=== PATIENT | male | born 1970 | race Caucasian/White ===

== ENCOUNTER 2021-12-16 16:09 | Inpatient (IN) | payer OTHER ==
[~2021-12-16] VITALS: Ht 172.7 cm; Wt 136.1 kg
--- NOTE | ~2021-12-16 | EMS ---
[place] [address] EMS Patient Care Report Name: FABIO CARDENAS Room #: PRE M.R.#: [id number] Admission: Attend Phys: Discharge: Date of : 66 Report #: [id number] THIS REPORT FOR: //name// Report Transmitted: 12/16/2021 16:14 EMS Care Summary [place], [place]/[facility] Incident [id number] @ 12/16/2021 15:28 Incident Location [facility] [place] [address] Patient FABIO CARDENAS Male, 51 Years 1970 Patient Address [address] [place] [address] Patient History Diabetes,Stroke/CVA, Patient Medications Insulin, Chief Complaint alt loc Disposition Transported No Lights/[place] Dispatch Reason Unconscious/Fainting Transported To [facility] Narrative ems met p41 on scene. sales development associate reported pt has had an decreased loc x5 days and is normally a&ox4 gcs 15. 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 sales development associate requested for pt to be transported to [facility]. sle is on high volume and sales development associate then requested for [facility] as an alternate. pt found in wheelchair and alert. pt alert to verbal stimuli but has his eyes closed gcs 13. p41 elected to not use ralph lift and pulled pt from chair onto ems cot. pt [address] [place] [address] EMS Patient Care Report Name: FABIO CARDENAS Room #: [facility] M.R.#: [id number] Admission: Attend Phys: Discharge: Date of : 66 Report #: [id number] was transferred onto ems cot and was secured in a semi fowlers position without incident. pt was loaded into ambulance. ra spo2 88%. pt was administered 2lpm o2 via nc. pt was transported non emergent. transport was uneventful and pt rested on ems cot. pt care was transferred to appropriate staff and ems goes back in service. Initial Vitals @15:42P: 92,R: 20,BP: 170/102,Pain: 0/10,GCS: 13,Glucose: 81,SpO2: 88,Revised Trauma: 12, @15:59P: 88,R: 20,BP: 146/88,GCS: 13,SpO2: 96,Revised Trauma: 12, Assessments @15:39MENTAL:Confused,SKIN:No Abnormalities,HEENT:Head/Face: No Abnormalities,Eyes: No Abnormalities,Neck/Airway: No Abnormalities,LUNG SOUNDS:General: No Abnormalities,Left Upper: No Abnormalities,Right Upper: No Abnormalities,Left Lower: No Abnormalities,Right Lower: No Abnormalities,ABDOMEN:General: No Abnormalities,Left Upper: No Abnormalities,Right Upper: No Abnormalities,Left Lower: No Abnormalities,Right Lower: No Abnormalities,PELVIS//GI:No Abnormalities,EXTREMITIES:Left Arm: No Abnormalities,Right Arm: No Abnormalities,Left Leg: No Abnormalities,Right Leg: No Abnormalities,PULSE:NEURO:No Abnormalities,@15:50MENTAL:No Abnormalities,SKIN:No Abnormalities,HEENT:Head/Face: No Abnormalities,Eyes: No Abnormalities,Neck/Airway: No Abnormalities,LUNG SOUNDS:General: No Abnormalities,Left Upper: No Abnormalities,Right Upper: No Abnormalities,Left Lower: No Abnormalities,Right Lower: No Abnormalities,ABDOMEN:General: No Abnormalities,Left Upper: No Abnormalities,Right Upper: No Abnormalities,Left Lower: No Abnormalities,Right Lower: No Abnormalities,PELVIS//GI:No Abnormalities,EXTREMITIES:Left Arm: No Abnormalities,Right Arm: No Abnormalities,Left Leg: No Abnormalities,Right Leg: No Abnormalities,PULSE:NEURO:No Abnormalities, Impression Altered Mental Status Procedures @15:39 ALS Assessment Response: UnchangedSucceeded @15:44 Oxygen FlowRate: 2 Device: Nasal Cannula (NC) Response: ImprovedSucceeded Timeline 15:26,Call Received 15:26,Dispatch Notified 15:28,Dispatched 15:30,En Route 15:38,[place] [address] EMS Patient Care Report Name: PAIGEBETTIEFABIO Room #: [facility] M.R.#: [id number] Admission: Attend Phys: Discharge: Date of : 66 Report #: [id number] 15:39,At Patient 15:39,ALS Assessment,Response: UnchangedSucceeded, 15:42,BP: 170/102 M,PULSE: 92,RR: 20 R,SPO2: 88 Ox,ETCO2: ,B,PAIN: 0,GCS: 13, 15:44,Oxygen FlowRate: 2 Device: Nasal Cannula (NC) Response: ImprovedSucceeded, 15:49,Depart Scene 15:59,BP: 146/88 M,PULSE: 88,RR: 20 R,SPO2: 96 Ox,ETCO2: ,BG: ,PAIN: ,GCS: 13, 16:02,At Destination 16:38,Call Closed Disclaimer v1.1 Copyright 2021 [employer] This EMS Care Summary contains data elements from the applicable legal record (which may be displayed differently). It is designed to provide pertinent information for the following purposes: continuity of care, clinical quality, and state data reporting. The complete legal record is available to ED staff and administrators of the receiving hospital in [employer]'s Patient Tracker. All data is provided "as is."
--- NOTE | ~2021-12-16 | EMS ---
[facility] [address] [place] [address] EMS Patient Care Report Name: FABIO CARDENAS Room #: 438-P ADM IN M.R.#: [id number] Admission: 12/16/21 Attend Phys: Jesus Hanks MD Discharge: Date of : 66 Report #: [id number] THIS REPORT FOR: //name// Report Transmitted: 12/18/2021 11:32 EMS Care Summary [place], [place] Incident [id number] @ 12/16/2021 15:28 Incident Location [address] [place] [address] Patient FABIO CARDENAS Male, 51 Years 1970 Patient Address [address] [place] [address] Patient History Diabetes,Stroke/CVA, Patient Medications Insulin, Chief Complaint alt loc Disposition Transported No Lights/[place] Dispatch Reason Unconscious/Fainting Transported To [facility] Narrative ems met p41 on scene. valet runner reported pt has had an decreased loc x5 days and is normally a&ox4 gcs 15. 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 valet runner requested for pt to be transported to [facility]. sle is on high volume and valet runner then requested for [facility] as an alternate. pt found in wheelchair and alert. pt alert to verbal stimuli but has his eyes closed gcs 13. p41 elected to not use ralph lift and pulled pt from chair onto ems cot. pt [facility] [address] [place] [address] EMS Patient Care Report Name: FABIO CARDENAS Room #: 438-P ADM IN M.R.#: [id number] Admission: 12/16/21 Attend Phys: Jesus Hanks MD Discharge: Date of : 66 Report #: [id number] was transferred onto ems cot and was secured in a semi fowlers position without incident. pt was loaded into ambulance. ra spo2 88%. pt was administered 2lpm o2 via nc. pt was transported non emergent. transport was uneventful and pt rested on ems cot. pt care was transferred to appropriate staff and ems goes back in service. Initial Vitals @15:42P: 92,R: 20,BP: 170/102,Pain: 0/10,GCS: 13,Glucose: 81,SpO2: 88,Revised Trauma: 12, @15:59P: 88,R: 20,BP: 146/88,GCS: 13,SpO2: 96,Revised Trauma: 12, Assessments @15:39MENTAL:Confused,SKIN:No Abnormalities,HEENT:Head/Face: No Abnormalities,Eyes: No Abnormalities,Neck/Airway: No Abnormalities,LUNG SOUNDS:General: No Abnormalities,Left Upper: No Abnormalities,Right Upper: No Abnormalities,Left Lower: No Abnormalities,Right Lower: No Abnormalities,ABDOMEN:General: No Abnormalities,Left Upper: No Abnormalities,Right Upper: No Abnormalities,Left Lower: No Abnormalities,Right Lower: No Abnormalities,PELVIS//GI:No Abnormalities,EXTREMITIES:Left Arm: No Abnormalities,Right Arm: No Abnormalities,Left Leg: No Abnormalities,Right Leg: No Abnormalities,PULSE:NEURO:No Abnormalities,@15:50MENTAL:No Abnormalities,SKIN:No Abnormalities,HEENT:Head/Face: No Abnormalities,Eyes: No Abnormalities,Neck/Airway: No Abnormalities,LUNG SOUNDS:General: No Abnormalities,Left Upper: No Abnormalities,Right Upper: No Abnormalities,Left Lower: No Abnormalities,Right Lower: No Abnormalities,ABDOMEN:General: No Abnormalities,Left Upper: No Abnormalities,Right Upper: No Abnormalities,Left Lower: No Abnormalities,Right Lower: No Abnormalities,PELVIS//GI:No Abnormalities,EXTREMITIES:Left Arm: No Abnormalities,Right Arm: No Abnormalities,Left Leg: No Abnormalities,Right Leg: No Abnormalities,PULSE:NEURO:No Abnormalities, Impression Altered Mental Status Procedures @15:39 ALS Assessment Response: UnchangedSucceeded @15:44 Oxygen FlowRate: 2 Device: Nasal Cannula (NC) Response: ImprovedSucceeded Timeline 15:26,Call Received 15:26,Dispatch Notified 15:28,Dispatched 15:30,En Route 15:38,On Scene [address] [address] EMS Patient Care Report Name: FABIO CARDENAS Room #: 438-P ADM IN M.R.#: [id number] Admission: 12/16/21 Attend Phys: Jesus Hanks MD Discharge: Date of : 66 Report #: [id number] 15:39,At Patient 15:39,ALS Assessment,Response: UnchangedSucceeded, 15:42,BP: 170/102 M,PULSE: 92,RR: 20 R,SPO2: 88 Ox,ETCO2: ,B,PAIN: 0,GCS: 13, 15:44,Oxygen FlowRate: 2 Device: Nasal Cannula (NC) Response: ImprovedSucceeded, 15:49,Depart Scene 15:59,BP: 146/88 M,PULSE: 88,RR: 20 R,SPO2: 96 Ox,ETCO2: ,BG: ,PAIN: ,GCS: 13, 16:02,At Destination 16:38,Call Closed Disclaimer v1.1 Copyright 2021 [employer] This EMS Care Summary contains data elements from the applicable legal record (which may be displayed differently). It is designed to provide pertinent information for the following purposes: continuity of care, clinical quality, and state data reporting. The complete legal record is available to ED staff and administrators of the receiving hospital in [employer]'s Patient Tracker. All data is provided "as is."
[~2021-12-16 16:09] MED LIST: ASA81BEC PO; BENZTROPINE MESY2 MG PO; CALCITONIN-SAL3.7 ML NASAL; COZAAR 25 MG TA25 M2 PO; HALOPERIDOL 5 MG5 MG PO; IRON325 M1 PO; JARDIANCE10 MG PO
[2021-12-16 16:48] VITALS: BP 164/103
[2021-12-16 17:11] LABS: URINE BILIRUBIN NEGATIVE (Negative); URINE BLOOD 1+ (Negative); URINE CLARITY CLOUDY; URINE COLOR YELLOW; URINE GLUCOSE-RANDOM* 3+ (Negative); URINE KETONES TRACE (Negative); URINE LEUKOCYTES-REFLEX 1+ (Negative); URINE NITRITE-REFLEX NEGATIVE (Negative); URINE PROTEIN (DIPSTICK) NEGATIVE (Negative)
[2021-12-16 17:11] LABS: ABSOLUTE NEUTROPHILS 4.6 thou/uL (1.4-8.2); BASOPHILS 0.6 % (0.0-2.0); EOSINOPHILS 1.8 % (0.0-3.0); HEMATOCRIT 40.6 % (42.0-52.0); HEMOGLOBIN 12.8 gm/dL (14.0-18.0); LYMPHOCYTES 21.3 % (24.0-44.0); MCH 28.7 pg (26.0-34.0); MCHC 31.6 g/dL (28.0-37.0); MCV 90.8 fL (80.0-100.0); MONOCYTES 14.7 % (1.0-8.0); PLATELET COUNT 253 thou/uL (150-400); POLYS 61.6 % (36.0-66.0); RBC 4.47 mil/uL (4.50-6.00); RDW 15.7 % (10.5-14.5); WBC 7.5 thou/uL (4.0-11.0)
[2021-12-16 17:17] LABS: CALCIUM 9.5 mg/dL (8.5-10.1); CREATININE 0.4 mg/dL (0.7-1.3)
[2021-12-16 17:21] LABS: CASTS None Seen /LPF (None Seen); SQUAMOUS 0-3 Few /LPF (0-3); URINE WBC-REFLEX >25 Many /HPF (0-5)
[2021-12-16 17:22] LABS: BACTERIA-REFLEX >30 Many /HPF (None Seen); CRYSTALS None Seen /LPF (None Seen); URINE RBC 3-10 Few /HPF (NONE SEEN)
[2021-12-16 17:26] LABS: POTASSIUM 2.2 mmol/L (3.5-5.1)
[2021-12-16 18:25] VITALS: BP 153/95
[2021-12-16 18:32] VITALS: BP 160/95
[2021-12-16 19:23] LABS: BE(vivo) 9.5 mmol/L (-2 to +3); HCO3 35.9 mmol/L (22.0-26.0); PO2 63.9 mmHg (80.0-100.0); pH 7.441 (7.360-7.450); sO2 92.8 % (92.0-98.0)
[2021-12-16 19:28] LABS: AMP/METHAMP Negative (Negative); BARBITURATES Negative (Negative); BENZODIAZEPINES Negative (Negative); COCAINE Negative (Negative); METHADONE Negative (Negative); OPIATES Negative (Negative); PCP Negative (Negative)
[2021-12-16 20:00] VITALS: BP 152/89
--- NOTE | 2021-12-16 21:15 | NUR ---
REPRINT SORTER ([place])-[phone]
[2021-12-16 22:10] VITALS: BP 156/92
[2021-12-16] MEDS ORDERED: FLEXERIL PO (22:36)
[2021-12-16] MEDS ORDERED: CLONAZEPAM 0.50.5 M1 PO (22:36)
[2021-12-16] MEDS ORDERED: AVODART0.5 MG PO (22:37)
[2021-12-16] MEDS ORDERED: JARDIANCE10 MG PO (22:38)
[2021-12-16] MEDS ORDERED: MONTELUKAST SODI4 M1 PO (22:38)
[2021-12-16] MEDS ORDERED: OMEPRAZOLE40 MG PO (22:39)
[2021-12-16] MEDS ORDERED: SEROQUEL 100 M100 M1 PO (22:40)
[2021-12-16] MEDS ORDERED: SIMVASTATIN40 MG PO (22:40)
[2021-12-16] MEDS ORDERED: SODIUM CHLORIDE1 G2 PO (22:41)
[2021-12-16] MEDS ORDERED: TAMSULOSIN HCL0.4 MG PO (22:42)
[2021-12-16] MEDS ORDERED: TRAMADOL 50 MG50 MG PO (22:43)
[2021-12-16] MEDS ORDERED: TRELEGY ELLIPT1 EACH (22:44)
[2021-12-16] MEDS ORDERED: VITAMIN D21250 MCG PO (22:45)
[2021-12-16] MEDS ORDERED: WELLBUTRIN 75 M75 M1 PO (22:46)
[2021-12-16] MEDS ORDERED: DEPAKOTE ER500 M1 PO (22:47)
[2021-12-16] MEDS ORDERED: METFORMIN HCL500 M3 PO (22:48)
[2021-12-16] MEDS ORDERED: MUCINEX600 MG PO (22:49)
[2021-12-16] MEDS ORDERED: NEURONTIN100 MG PO (22:49)
[2021-12-16] MEDS ORDERED: SEROQUEL 25 MG25 MG PO (22:50)
--- NOTE | 2021-12-17 06:00 | NUR ---
ASSUMED CARE OF PT AT 1900. PT ASSESSED TO BE AOX2 51M PRESENTING WITH UTI AND AMS. PT ADMITTED TO ROOM AND MADE COMFORTABLE. ALL ADMIT CHECKLIST COMPLETED. CLEANED UP PT IN BED. PT IS STABLE ON 3L (BASELINE) AND 8L WITH CPAP AT NIGHT, FLUIDS WITH POTASSIUM INFUSING, ORAL POTASSIUM GIVEN FOR REPLACEMENT, BS STABLE, HOME MEDS INPUT TO MED REC, AND IS ABLE TO TAKE MEDICINE CRUSHED IN APPLESAUCE. CALLED MD ABOUT CHANGING JUSTICE IT IS PURULENT. UPON ASSESSMENT PT HAS SOME TRAUMA TO PENIS AND URETHRA INCLUDING SOME SCAR TISSUE. UPON DISCUSSION WITH INDUSTRIAL PSYCHOLOGY TEACHER, WILL AWAIT ID (AND POSSIBLE URO CONSULT) IN AM BEFORE REMOVING JUSTICE. STILL DRAINING WELL. WILL CONT TO MONITOR AND UPDATE DAY SHIFT RN.
[2021-12-17 06:01] LABS: BASOPHILS 0.2 % (0.0-2.0); EOSINOPHILS 0.1 % (0.0-3.0); HEMATOCRIT 37.9 % (42.0-52.0); HEMOGLOBIN 12.5 gm/dL (14.0-18.0); LYMPHOCYTES 18.7 % (24.0-44.0); MCH 29.4 pg (26.0-34.0); MCV 89.1 fL (80.0-100.0); MONOCYTES 11.2 % (1.0-8.0); PLATELET COUNT 240 thou/uL (150-400); POLYS 69.8 % (36.0-66.0); RBC 4.25 mil/uL (4.50-6.00); RDW 15.4 % (10.5-14.5); WBC 4.3 thou/uL (4.0-11.0)
[2021-12-17 06:30] LABS: CALCIUM 9.4 mg/dL (8.5-10.1); CREATININE 0.3 mg/dL (0.7-1.3); MAGNESIUM 1.6 mg/dL (1.8-2.4)
[2021-12-17 06:34] LABS: POTASSIUM 2.7 mmol/L (3.5-5.1)
--- NOTE | 2021-12-17 09:22 | NUR ---
WOUND CONSULT: RISK ASSESSMENT: THE PATIENT IS 300LB. HIS GIRTH/WEIGHT IS APPROPRATE FOR THIS BED. THERE ARE NO WOUNDS. THE PATIENT HAS AN APPITITE AND IS EATING. THE PATIENT HAS A JUSTICE. RECOMMENDATIONS: -ADD A LOW AIRLOSS BED PUMP: MAKE SURE THE PUMP IS ON THE ISOFLEX SETTING AT ALL TIMES. -NO NEED TO FOLLOW THIS PATIENT.
[2021-12-17] MEDS ORDERED: DIVALPROEX SOD500 MG PO (12:10)
--- NOTE | 2021-12-17 14:07 | 2DMMODE ---
[facility] [place] [address] 2 D/M-MODE ECHOCARDIOGRAM Name: FABIO CARDENAS Room #: 438-P ADM IN M.R.#: [id number] Admission: 12/16/21 Attend Phys: Jesus Hanks MD Discharge: Date of : 66 Report #: [id number] THIS REPORT FOR: cc: Tia Osorio MD, Rita MD Lammoglia, Francisco J. MD ~ APPROVED REPORT Study performed: 12/17/2021 13:22:42 EXAM: Comprehensive 2D, Doppler, and color-flow Echocardiogram Patient Location: Bedside Room #: 438 Status: routine BSA: 2.43 HR: 84 bpm BP: 156/92 mmHg Rhythm: NSR Other Information Study Quality: Fair Technically limited study due to lung disease, morbid obesity. Indications Dyspnea, hypoxia, COPD. Hx: paraplegia, mental retardation, HTN, HLP, DM, obesity. Echo Enhancing Agent Indication: Endocardial border delineation Agent(s) / Amount(s) Used: Optison 4 cc 2D Dimensions RVDd: 40.08 mm IVSd: 9.70 (7-11mm) LVOT Diam: 23.29 (18-24mm) LVDd: 51.82 mm PWd: 10.39 (7-11mm) Ascending Ao: 37.70 (22-36mm) LVDs: 38.52 (25-40mm) Left Atrium: 30.67 (27-40mm) Aortic Root: 42.02 mm Volumes Left Atrial Volume (Systole) Single Plane 4CH: 26.60 mL Single Plane 2CH: 29.65 mL [facility] [address] [place] [address] 2 D/M-MODE ECHOCARDIOGRAM Name: PAIGEFABIO ALEXANDRE Room #: 438-P [facility] IN ..#: [id number] Admission: 12/16/21 Attend Phys: Jesus Hanks MD Discharge: Date of : 66 Report #: [id number] ESV Index: 13.00 mL/m2 Aortic Valve AoV Peak Perico.: 1.21 m/s AO Peak Gr.: 5.90 mmHg LVOT Max P.83 mmHg LVOT Max V: 1.21 m/s FADY Vmax: 4.23 cm2 Mitral Valve E/A Ratio: 1.2 MV Decel. Time: 209.67 ms MV E Max Perico.: 0.69 m/s MV A Perico.: 0.57 m/s MV PHT: 60.80 ms IVRT: 65.74 ms Pulmonary Valve PV Peak Perico.: 1.07 m/s PV Peak Gr.: 4.56 mmHg Pulmonary Vein P Vein S: 0.55 m/s P Vein A: 0.30 m/s P Vein D: 0.42 m/s P Vein S/D Ratio: 1.31 Left Ventricle The left ventricle is normal size. There is normal LV segmental wall motion. There is normal left ventricular wall thickness. Left ventricular systolic function is normal. LVEF is 60%. Moderate diastolic dysfunction is present (pseudonormal filling). Right Ventricle The right ventricle is normal size. The right ventricular systolic function is normal. Atria The left atrium size is normal. The right atrium size is normal. Aortic Valve The Aortic valve is sclerotic. No aortic regurgitation is present. There is no aortic valvular stenosis. Mitral Valve The mitral valve is normal in structure. There is no mitral valve regurgitation noted. No evidence of mitral valve stenosis. [facility] [address] [place] [address] 2 D/M-MODE ECHOCARDIOGRAM Name: FABIO CARDENAS Room #: 438-P ADM IN .R.#: [id number] Admission: 12/16/21 Attend Phys: Jesus Hanks MD Discharge: Date of : 66 Report #: [id number] Tricuspid Valve The tricuspid valve is normal in structure. There is no tricuspid valve regurgitation noted. Unable to assess PA pressure. Pulmonic Valve The pulmonary valve is normal in structure. There is no pulmonic valvular regurgitation. Great Vessels Aortic root is dilated (4.2cm). The ascending aorta is at the upper limits of normal. IVC is poorlyl visualized. Pericardium There is no pericardial effusion. <Conclusion> The left ventricle is normal size. There is normal left ventricular wall thickness. LVEF is 60%. The right ventricle is normal size. The left atrium size is normal. The Aortic valve is sclerotic. The mitral valve is normal in structure. The tricuspid valve is normal in structure. The pulmonary valve is normal in structure. Aortic root is dilated (4.2cm). The ascending aorta is at the upper limits of normal. There is no pericardial effusion. <ELECTRONICALLY SIGNED> By: Bernardo Simmons MD 12/17/21 1406 1406 1406 Bernardo Simmons MD /INF
[2021-12-17 14:23] VITALS: BP 156/92
--- NOTE | 2021-12-17 14:24 | NUR ---
Case opened to follow for dc planning. Pt admitted with complicated UTI and pneumonitis. Covid NOW was negative and Covid PCR is pending. Pt admits from a [facility]ci ([facility]) called [facility]. He lives with 3 other residents and has 24hr care/superivison.He has a hx of parapelegia from 6months ago and long hx of schizophrenia and mild mental retardation as well asthma/copd. He is a two pack a day smoker and uses noc O2 at 2lnc. He transfer up to a w/c via ralph lift and staff push him around the home. He is able to feed himself and use his cell phone but needs assist with dressing, bathing, grooming and medication mngt. He has a hood cath in place and uses [facility] HH services with regular RN visits. His cath was last changed on 11/26/21 and has is noted to have been battling a UTI for the past month. The pt has had 2 covid vaccines and a booster 9 days ago. His cg reports he is a&ox3 and able to make his own decisions. [facility] reports their cm/director/care team assists him with decision making as he does not have a legal guardian or DPOA or health care directive. His closest next of kin is his step mother who lives in [place]. [facility] calls her regular updates and notes that they have updated her on his hospitalization. They deny any known covid exposures. The pt's caregiver Martina, his case mngr and the director can all be reached by all the main number at [facility] [phone]. They would like to have his HH services resumed at [place]. They have his w/c at the house but his ralph lift pad is here in his room (confirmed with the unit RN). They can provide transport at [place] and will need a chart copy and med orders. ID and urology have been consulted. The pt is getting iv atb, st eval, and on 4liters of o2. Care team updated. [facility] notified of his admission. They will need orders to resume at [place]. Cm assessment completed via phone with the staff at [facility] as pt is confused at this time. Will follow.
--- NOTE | 2021-12-17 14:44 | NUR ---
Assess due to RD consult received. Pt with class III obesity, BMI 45.6 admitted from skilled nursing with altered mental status, UTI. Hx diabetes, schiophrenia, paraplegia. Wound care indicates no wounds. ST has assessed and placed on modified diet with nectar liquids and pt will require feed assist. Will follow intake trends, otherwise low nutrition risk with appropriate nutrition interventions in place
[2021-12-17 16:33] VITALS: BP 123/76
--- NOTE | 2021-12-17 18:45 | NUR ---
Patient axox1, had a hood last change was Oct,. Home health nurse at [facility] home change hood each month on the . patient had two mucosy bowel movement today. eating fair, bestrest due to paralyze from waist down. call light within reach, will continous monitoring.
--- NOTE | 2021-12-17 19:19 | NUR ---
Patient had critical K of 2.8 at 1634, page the doctor at 1635. then page the hospitalist two more time, pending response.
[2021-12-17 20:01] VITALS: BP 150/93
--- NOTE | 2021-12-18 02:41 | NUR ---
PT IS A/O X1-2 WITH HALLUCINATIONS. CURRENTLY ON BEDREST. WEARS CPAP AT [facility]. DENIES C/O PAIN OR DISCOMFORT. MEDICATIONS GIVEN PER MAR. PT POTASSIUM LEVEL LOW. IT INTEGRATION ARCHITECT NOTIFIED. ORDERS GIVEN AND CARRIED OUT. FALL PRECUATIONS IN PLACE, CALL LIGHT IS WITHIN REACH.
[2021-12-18 07:09] LABS: GLYCOHEMOGLOBIN (HGB A1C) 5.2 % (4.8-5.6)
--- NOTE | 2021-12-18 07:31 | HC ---
[facility] [place] [address] CONSULTATION Name: FABIO CARDENAS Room #: 438-P ADM IN M.R.#: [id number] Admission: 12/16/21 Attend Phys: Jesus Hanks MD Discharge: Date of : 66 Report #: [id number] THIS REPORT FOR: cc: Tia Osorio MD, Rita MD Barry, Joseph W. MD ~ DATE OF SERVICE: 12/17/2021 INFECTIOUS DISEASE CONSULTATION ATTENDING PHYSICIAN: Dr. Jesus Hanks. REASON FOR EVALUATION: Recurrent urinary tract infection, suspected pneumonitis as well. HISTORY OF PRESENT ILLNESS: Chart reviewed. The patient examined. This is a 51-year-old gentleman with significant disease burden, has underlying mild mental retardation, schizophrenia, also notes hypertension, diabetes mellitus, who apparently lives at home, has a wallpaper consultant who noted altered mental status over the last several days. He is unable to give me too many details of the history, although he is presenting more lucid at this point. He does admit to some mild dyspnea without cough. He is requiring supplemental oxygen at 4 liters per nasal cannula, currently, although had been up to 8. Evaluation was initiated. Chest x-ray showed diffuse bilateral interstitial and alveolar opacities, question of edema versus pneumonitis. Urinalysis did show marked pyuria and marked bacteriuria as well. Lactic acid was normal range at 0.8. Coronavirus testing was negative. Procalcitonin 0.15. Initial ABGs, pH 7.441, pCO2 of 54, pO2 of 63.9 on 3 liters. Blood cultures collected at time of admission are sterile thus far. Urine culture is pending. He is empirically started on therapy with levofloxacin, dose of ceftriaxone. ALLERGIES: None known. CURRENT MEDICINES: Include methylprednisolone, furosemide, enoxaparin, levofloxacin, ipratropium, albuterol inhaler, p.r.n. ondansetron. PAST MEDICAL HISTORY: Hypertension, asthma, underlying COPD, reflux, mental retardation, schizophrenia. SOCIAL HISTORY: He is disabled. FAMILY HISTORY: Noncontributory. REVIEW OF SYSTEMS: As noted above. He denies any significant GI related complaints. [facility] [address] [place] [address] CONSULTATION Name: FABIO CARDENAS Room #: 438-P [facility].#: [id number] Admission: 12/16/21 Attend Phys: Jesus Hanks MD Discharge: Date of : 66 Report #: [id number] PHYSICAL EXAMINATION: GENERAL: He appears chronically ill, undernourished though he is obese. He is pleasant, cooperative, encephalopathic. VITAL SIGNS: Temperature 97.2, pulse 87, respirations 18, blood pressure 156/92. SKIN: Warm. He is pale. HEENT: Normocephalic. Extraocular muscles intact. NECK: Supple. LUNGS: Diminished breath sounds. There are some wheezes. Few scattered coarse breath sounds, primarily at the bases. HEART: Regular. I do not appreciate a murmur. ABDOMEN: Obese, firm, nontender. GENITOURINARY AND RECTAL: Deferred. LABORATORY DATA: Electrolytes: Sodium 145, potassium 2.7, chloride 103, bicarbonate is 35, anion gap of 7, BUN and creatinine 7 and 0.3, glucose of 123. CBC: White count 4.3, H and H 12.5 and 37.9, platelets of 240. Drug screen was negative. Sed rate of 58. ASSESSMENT AND PLAN: Complicated urinary tract infection, complicated by encephalopathy. Secondly, he appears to have pneumonitis versus edema, seems to have improved over the course of last few hours. We will continue Levaquin. We will check an echo to evaluate. No evidence of vasculopathy to this point nor does have history of hypertension apparently. Check troponin, CPK. At this point, he remains quite tenuous. We will continue to monitor expectantly. <ELECTRONICALLY SIGNED> By: Young Snider MD 12/18/21 0731 1049 [id number] Young Snider MD /nt
[2021-12-18 08:01] VITALS: BP 167/105
[2021-12-18 08:39] LABS: CALCIUM 9.8 mg/dL (8.5-10.1); CREATININE 0.4 mg/dL (0.7-1.3)
[2021-12-18 08:49] LABS: POTASSIUM 2.9 mmol/L (3.5-5.1)
--- NOTE | 2021-12-18 10:45 | NUR ---
ASSUMED PT CARE AT 0700 THIS MORNING. PT IS A/OX4 AND PARALYZED FROM WAIST DOWN. ASSESSMENTS NOTED IN CHART AND OTEHRWISE UNREMARKABLE. FALL PRECAUTIONS ARE IN PLACE. CALL LIGHT AND OTHER NEEDS ARE IN REACH. MEDS AND TX GIVEN NEEDED AND SCEDULED. WILL CONTINUE TO MONITOR AND NOTE ANY CHANGES.
[2021-12-18 16:03] VITALS: BP 167/105
[2021-12-18 16:11] VITALS: BP 176/111
[2021-12-18 20:00] VITALS: BP 157/106
[2021-12-19 00:30] VITALS: BP 154/107
--- NOTE | 2021-12-19 02:28 | NUR ---
PT IS A/O X1 AND IS ON BEDREST. 4 LITERS O2 PER NC. TOOK OFF CPAP AFTER JUST A FEW HOURS OF WEARING IT. O2 LEVEL WNL. JUSTICE CATHETER IN PLACE DRAINING YELLOW URINE. INCONTINENT OF STOOL X1. DENIES C/O PAIN OR DISCOMFORT. MEDICATIONS GIVEN PER MAR. PRAFO BOOTS IN PLACE. EDEMA NOTED TO VERO OWEN. FALL PRECAUTIONS IN PLACE, CALL LIGHT IS WITHIN REACH.
[2021-12-19 05:19] LABS: CREATININE 0.3 mg/dL (0.7-1.3)
[2021-12-19 05:26] VITALS: BP 147/103
[2021-12-19 05:49] LABS: POTASSIUM 2.6 mmol/L (3.5-5.1)
[2021-12-19 08:48] VITALS: BP 145/102
[2021-12-19 12:02] VITALS: BP 156/92
--- NOTE | 2021-12-19 15:24 | NUR ---
No dc today. GI consult and replacement of low K+. [facility] HH called and updated provided. Possible dc soon. They will need new orders faxed for RN/PT/OT.
--- NOTE | 2021-12-19 16:06 | NUR ---
DISCONTINUED L AC PERIPHERAL IV - NEW IV PUT IN ON RIGHT FOREARM
--- NOTE | 2021-12-19 17:01 | NUR ---
ADMINISTERED SUPPOSITORY - PT HAD TWO LIQUIDY STOOLS THROUGHOUT THE DAY.
[2021-12-19 20:19] VITALS: BP 110/72
--- NOTE | 2021-12-20 06:12 | NUR ---
NO ACUTE EVENTS THIS SHIFT. PT HAS MULTIPLE LARGE LIQUID BMs OVERNIGHT- REPORTS FEELING BETTER THIS MORNING. CPAP WORN OVERNIGHT- MEDS GIVEN PER EMAR. PT DENIES PAIN, REPOSITIONED WILLING
[2021-12-20 07:24] VITALS: BP 108/67
[2021-12-20 07:38] LABS: CALCIUM 9.1 mg/dL (8.5-10.1); CREATININE 0.7 mg/dL (0.7-1.3)
[2021-12-20 07:48] LABS: POTASSIUM 2.9 mmol/L (3.5-5.1)
--- NOTE | 2021-12-20 08:24 | NUR ---
Lab called with crit lab of potassium 2.9. Dr velez notified. pt assymptomatic
[2021-12-20 15:28] VITALS: BP 116/67
--- NOTE | 2021-12-20 16:51 | NUR ---
If patient discharge over weekend Call [facility] home at [phone]. Alert of discharge and fax orders to [phone]. arrange transport via [facility] at [phone] dont forget to request oxygen. Call [facility] home health care at [phone] alert of discharge and fax orders to [phone]
[2021-12-20 20:49] VITALS: BP 133/85
--- NOTE | 2021-12-21 02:52 | NUR ---
ASSUMED CARE OF PT AT 1900,. REPORT RECIEVED. RADHA ASSESSMENT COMPLETE. MEDS GIVEN PER JAN. NO C/O PAIN AT THIS TIME. IV VANCO RUNNING PER JAN PER PHARMACY. JUSTICE CARE DONE, IN PLACE, DRAINING. PRAFO BOOTS ON BLE. REPOSITIONING Q 2 HOURS. NO INSULIN GIVEN D/T NOT BEING INDICATED AT THIS TIME. HOURLY ROUNDING CONTINUING. CALL LIGHT IN REACH
[2021-12-21 07:41] VITALS: BP 145/96
[2021-12-21] MEDS ORDERED: MIRALAX17 GM PO (09:00)
[2021-12-21] MEDS ORDERED: CEFDINIR300 MG PO (09:04)
[2021-12-21 10:25] VITALS: BP 145/96
--- NOTE | 2021-12-21 10:27 | NUR ---
ASSUMED CARE OF PT AT 0700. PT REQURED VASHTI CARE ON START OF SHIFT - HAD EXTRA LARGE LIQUIDY BM. RESTING COMFORTABLY OTHERWISE. NO COMPLAINTS OF PAIN. ALL VITAL SIGNS WNL. CURRENT SAT 98% ON 2L. ATE 50% OF BREAKFAST. DR BARAJAS PUT IN DISCHARGE ORDER FOR TODAY. WAITING ON DIRECTOR CHEMISTRY TIME.
--- NOTE | 2021-12-21 13:20 | NUR ---
PT DISCHARGING TODAY BACK TO [facility] FAXED DC ORDERS/SUMMARY RECEIVED CONFIRMATION. SPOKE WITH YAMEL FROM THE [facility] AND SHE SPOKE WITH PT'S NURSE AND AT FIRST A WC TRANSPORT WAS ORDERED SHE SAID PT USES WC AT HOME. BUT NURSE SRIDHAR CALLED AND SPOKE WITH YAMEL AND PT'S WC AT HOME HAS STRAPS TO HOLD HIM IN A UPRIGHT POSITION. SO BOTH AGREE ON STRETCHER VAN FOR TRANSPORT NOTIFIED [facility] AND THEY CAN PICK PT UP AT 1999 TONITE AND NOTIFIED YAMEL AT [facility] HOME AND SHE CAN ACCEPT PT AT THAT TIME. NOTIFIED THE UNIT SPOKE WITH SRIDHAR GOODWIN AND ALL IN AGREEMENT TO DC TODAY AT 1999.
== END 2021-12-21 18:05 | disposition home health service (06) | DRG 177 ==
LOC: ER 16:09 → EROBS 18:06 → 4S 18:06
PROVIDERS: Emergency Medicine; Nurse Practitioner; Specialist; ADMIT Hospitalist; ATTEND Hospitalist
PROC: 5A09357 Assistance with Respiratory Ventilation, Less than 24 Consecutive Hours, Continuous Positive Airway Pressure (ICD-10-PCS; principal; 2021-12-16)
PROC: 5A09357 Assistance with Respiratory Ventilation, Less than 24 Consecutive Hours, Continuous Positive Airway Pressure (ICD-10-PCS; 2021-12-18)
PROC: 5A09357 Assistance with Respiratory Ventilation, Less than 24 Consecutive Hours, Continuous Positive Airway Pressure (ICD-10-PCS; 2021-12-19)
PROC: 5A09357 Assistance with Respiratory Ventilation, Less than 24 Consecutive Hours, Continuous Positive Airway Pressure (ICD-10-PCS; 2021-12-20)
PROC: 5A09357 Assistance with Respiratory Ventilation, Less than 24 Consecutive Hours, Continuous Positive Airway Pressure (ICD-10-PCS; 2021-12-21)
DX: J15.6 Pneumonia due to other Gram-negative bacteria (principal); J96.21 Acute and chronic respiratory failure with hypoxia; N39.0 Urinary tract infection, site not specified; G93.40 Encephalopathy, unspecified; G82.20 Paraplegia, unspecified; J44.0 Chronic obstructive pulmonary disease with (acute) lower respiratory infection; E87.6 Hypokalemia; F20.9 Schizophrenia, unspecified; E11.9 Type 2 diabetes mellitus without complications; Z20.822 Contact with and (suspected) exposure to COVID-19; K21.9 Gastro-esophageal reflux disease without esophagitis; E78.5 Hyperlipidemia, unspecified; I10 Essential (primary) hypertension; R41.0 Disorientation, unspecified; J45.909 Unspecified asthma, uncomplicated; F32.9 Major depressive disorder, single episode, unspecified; K59.09 Other constipation; G25.81 Restless legs syndrome; Z79.82 Long term (current) use of aspirin; Z79.899 Other long term (current) drug therapy; Z74.01 Bed confinement status
CPT/HCPCS: 10100; 10195

== ENCOUNTER 2022-01-03 16:12 | Inpatient (IN) | payer OTHER ==
[~2022-01-03] VITALS: Ht 182.9 cm; Wt 131.5 kg
--- NOTE | ~2022-01-03 | EMS ---
[address] [address] EMS Patient Care Report Name: FABIO CARDENAS Room #: PRE M.R.#: [id number] Admission: Attend Phys: Discharge: Date of : 66 Report #: [id number] THIS REPORT FOR: //name// Report Transmitted: 01/03/2022 17:23 EMS Care Summary [place], [place]/[facility] Incident [id number] @ 01/03/2022 15:41 Incident Location [facility] [address] [place] [address] Patient FABIO CARDENAS Male, 51 Years 1970 Patient Address [address] [place] [address] Patient History Diabetes,Stroke/CVA, Patient Medications Insulin, Chief Complaint Possible altered mental status Disposition Transported No Lights/[place] Dispatch Reason Sick Person Transported To [facility] Narrative M42 arrived on scene to find the patient reclined in a wheel chair. Staff said the patient from 12:30-3:30 had an abnormal mental status. They said the patient would not talk to them and would just wave his hand at them. Patient was responding to our questions and was AOX2. According to staff he seemed more normal now but was a little off. Patient was not normally on oxygen and had been in the 70's until they had placed him on oxygen. Patient was initially on [address] [address] EMS Patient Care Report Name: FABIO CARDENAS Room #: PRE [facility]..#: [id number] Admission: Attend Phys: Discharge: Date of : 66 Report #: [id number] 4lpm at 92%. We removed the oxygen and the patient oxygen sat had dropped to 85%. We placed the patient back on oxygen and he went back up to the 90's. Patient denied chest pain, fever, cough, or shortness of breath. Patient was moved to the cot and secured with seat belts. Patient had dark colored urine in his urinary catheter bag. En route to the hospital no changes in the patient condition occurred. M42 arrived on scene of the hospital and patient care was transferred to the RN. Initial Vitals @15:55P: 82,R: 16,BP: 133/78,Pain: 0/10,GCS: 14,Glucose: 127,CO: 0,SpO2: 95,Revised Trauma: 12, @15:51P: 79,R: 16,BP: 127/68,Pain: 0/10,GCS: 14,SpO2: 98,Revised Trauma: 12, Assessments @15:48MENTAL:Confused,Event Oriented,Person Oriented,SKIN:HEENT:Head/Face: No Abnormalities,Eyes: No Abnormalities,Neck/Airway: No Abnormalities,LUNG SOUNDS:General: No Abnormalities,Left Upper: No Abnormalities,Right Upper: No Abnormalities,Left Lower: No Abnormalities,Right Lower: No Abnormalities,ABDOMEN:General: No Abnormalities,Left Upper: No Abnormalities,Right Upper: No Abnormalities,Left Lower: No Abnormalities,Right Lower: No Abnormalities,PELVIS//GI:No Abnormalities,EXTREMITIES:Left Arm: No Abnormalities,Right Arm: No Abnormalities,Left Leg: No Abnormalities,Right Leg: No Abnormalities,PULSE:NEURO:No Abnormalities,@15:59MENTAL:Confused,Event Oriented,Person Oriented,SKIN:HEENT:Head/Face: No Abnormalities,Eyes: No Abnormalities,Neck/Airway: No Abnormalities,LUNG SOUNDS:General: No Abnormalities,Left Upper: No Abnormalities,Right Upper: No Abnormalities,Left Lower: No Abnormalities,Right Lower: No Abnormalities,ABDOMEN:General: No Abnormalities,Left Upper: No Abnormalities,Right Upper: No Abnormalities,Left Lower: No Abnormalities,Right Lower: No Abnormalities,PELVIS//GI:No Abnormalities,EXTREMITIES:Left Arm: No Abnormalities,Right Arm: No Abnormalities,Left Leg: No Abnormalities,Right Leg: No Abnormalities,PULSE:NEURO:No Abnormalities, Impression Altered Mental Status Procedures @15:48 ALS Assessment Response: UnchangedSucceeded @15:56 IV Therapy - Saline Lock 10cc (20 ga) Site: Antecubital-Left Response: UnchangedSucceeded Timeline 15:40,Call Received 15:40,Dispatch Notified 15:41,Dispatched [address] [address] EMS Patient Care Report Name: FABIO CARDENAS Room #: PRE M.R.#: [id number] Admission: Attend Phys: Discharge: Date of : 66 Report #: [id number] 15:42,En Route 15:47,On Scene 15:48,At Patient 15:48,ALS Assessment,Response: UnchangedSucceeded, 15:51,BP: 127/68 M,PULSE: 79,RR: 16 R,SPO2: 98 Ox,ETCO2: ,BG: ,PAIN: 0,GCS: 14, 15:54,Depart Scene 15:55,BP: 133/78 M,PULSE: 82,RR: 16 R,SPO2: 95 Ox,ETCO2: ,B,PAIN: 0,GCS: 14, 15:56,IV Therapy - Saline Lock 10cc 20 ga Site: Antecubital-Left,Response: UnchangedSucceeded, 16:08,At Destination 16:31,Call Closed Disclaimer v1.1 Copyright 2021 [employer] This EMS Care Summary contains data elements from the applicable legal record (which may be displayed differently). It is designed to provide pertinent information for the following purposes: continuity of care, clinical quality, and state data reporting. The complete legal record is available to ED staff and administrators of the receiving hospital in [employer] Patient Tracker. All data is provided "as is."
[~2022-01-03 16:12] MED LIST changes: +AVODART0.5 MG PO; +CEFDINIR300 MG PO; +CLONAZEPAM 0.50.5 M1 PO; +DEPAKOTE ER500 M1 PO; +DIVALPROEX SOD500 MG PO; +FLEXERIL PO; +METFORMIN HCL500 M3 PO; +MIRALAX17 GM PO; +MONTELUKAST SODI4 M1 PO; +MUCINEX600 MG PO; +NEURONTIN100 MG PO; +OMEPRAZOLE40 MG PO; +SEROQUEL 100 M100 M1 PO; +SEROQUEL 25 MG25 MG PO; +SIMVASTATIN40 MG PO; +SODIUM CHLORIDE1 G2 PO; +TAMSULOSIN HCL0.4 MG PO; +TRAMADOL 50 MG50 MG PO; +TRELEGY ELLIPT1 EACH; +VITAMIN D21250 MCG PO; +WELLBUTRIN 75 M75 M1 PO
[2022-01-03 16:15] VITALS: BP 109/64
[2022-01-03 16:33] LABS: BE(vivo) 10.4 mmol/L (-2 to +3); HCO3 36.3 mmol/L (22.0-26.0); PCO2 53.4 mmHg (35.0-45.0); PO2 70.4 mmHg (80.0-100.0); sO2 94.5 % (92.0-98.0)
[2022-01-03 16:44] LABS: ABSOLUTE NEUTROPHILS 4.1 thou/uL (1.4-8.2); EOSINOPHILS 3.5 % (0.0-3.0); HEMATOCRIT 39.5 % (42.0-52.0); HEMOGLOBIN 12.9 gm/dL (14.0-18.0); LYMPHOCYTES 28.6 % (24.0-44.0); MCH 28.6 pg (26.0-34.0); MCHC 32.5 g/dL (28.0-37.0); MONOCYTES 8.3 % (1.0-8.0); PLATELET COUNT 278 thou/uL (150-400); POLYS 58.6 % (36.0-66.0); RBC 4.49 mil/uL (4.50-6.00); RDW 16.4 % (10.5-14.5)
[2022-01-03 17:07] LABS: ALBUMIN 2.4 g/dL (3.4-5.0); CREATININE 0.4 mg/dL (0.7-1.3); TOTAL BILIRUBIN 0.3 mg/dL (0.2-1.0)
[2022-01-03 17:22] LABS: POTASSIUM 2.1 mmol/L (3.5-5.1)
[2022-01-03 17:43] LABS: URINE BILIRUBIN 1+ (Negative); URINE BLOOD 1+ (Negative); URINE CLARITY CLEAR; URINE COLOR YELLOW; URINE GLUCOSE-RANDOM* 3+ (Negative); URINE KETONES 1+ (Negative); URINE LEUKOCYTES-REFLEX NEGATIVE (Negative); URINE PROTEIN (DIPSTICK) 1+ (Negative)
[2022-01-03 17:55] LABS: URINE NITRITE-REFLEX POSITIVE (Negative)
[2022-01-03 18:09] LABS: BACTERIA-REFLEX >30 Many /HPF (None Seen); CASTS None Seen /LPF (None Seen); CRYSTALS None Seen /LPF (None Seen); SQUAMOUS 0-3 Few /LPF (0-3); URINE RBC 3-10 Few /HPF (NONE SEEN)
[2022-01-03 18:22] LABS: PROTIME 10.5 Seconds (9.3-11.4)
[2022-01-03 18:36] LABS: APTT 32.1 Seconds (24.5-32.8); D-DIMER 1.09 ug/mLFEU (0.19-0.50)
[2022-01-03 20:18] VITALS: BP 153/88
[2022-01-03 21:31] VITALS: BP 152/90
[2022-01-04 06:13] LABS: ABSOLUTE NEUTROPHILS 3.8 thou/uL (1.4-8.2); BASOPHILS 0.4 % (0.0-2.0); EOSINOPHILS 0.5 % (0.0-3.0); HEMATOCRIT 37.8 % (42.0-52.0); HEMOGLOBIN 12.5 gm/dL (14.0-18.0); LYMPHOCYTES 16.7 % (24.0-44.0); MCH 29.1 pg (26.0-34.0); MCHC 33.1 g/dL (28.0-37.0); MCV 88.2 fL (80.0-100.0); MONOCYTES 2.1 % (1.0-8.0); PLATELET COUNT 228 thou/uL (150-400); POLYS 80.3 % (36.0-66.0); RBC 4.29 mil/uL (4.50-6.00); RDW 15.9 % (10.5-14.5); WBC 4.7 thou/uL (4.0-11.0)
[2022-01-04 06:14] LABS: CALCIUM 8.8 mg/dL (8.5-10.1); CREATININE 0.3 mg/dL (0.7-1.3); MAGNESIUM 1.7 mg/dL (1.8-2.4)
[2022-01-04 06:17] LABS: POTASSIUM 2.2 mmol/L (3.5-5.1)
--- NOTE | 2022-01-04 06:33 | NUR ---
PT ARIVED FROM ED AROUND 2129. PT ORIENTED TO SELF AND PLACE. EJ PLACED BY ED NURSE IN ORDER TO OPTAIN STAT IMAGING. PT HAD VARIOUS VISUAL AND AUTITORY HAULUCINATIONS OVERNIGHT. MULTIPLE LIQUID BMS, JUSTICE IN PLACE FROM PREVIOUS CARE FACILITY. CRITICALLY LOW K+ THIS AM, TRINITY RAMSEY NOTIFIED MAG & POTASSIUM REPLACEMENTS ORDERED BASED ON TELEPHONE AND READBACK ORDERS
[2022-01-04 08:30] VITALS: BP 104/68
[2022-01-04 12:35] VITALS: BP 129/91
[2022-01-04 16:05] VITALS: BP 150/99
--- NOTE | 2022-01-04 17:14 | NUR ---
Patient is alert and oriented x 1, answering question and interacting. on 5 liter. replace potassium. changed the hood catheter out with 16 fr with urine return. Patient had a bedbath, and had a BM today. RN update to [facility]. Call light within reach, will continous monitoring.
[2022-01-04 20:52] VITALS: BP 118/77
--- NOTE | 2022-01-05 05:14 | NUR ---
patient aox1 confused and forgetful. patient had low pottassium of 2.3 at around 1999,called welder fitter gas new order of pottassium and mg please see jan. . meds administed. fall precaution in place. patient has c pap on. patient in bed asleep at this time breathing regular and unlaboured.
[2022-01-05 07:48] VITALS: BP 138/87
[2022-01-05 11:54] VITALS: BP 139/72
[2022-01-05 20:19] VITALS: BP 132/90
[2022-01-06 07:46] VITALS: BP 130/75
--- NOTE | 2022-01-06 07:53 | EKG ---
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 : 1970 Requested By: Jared Nesbitt Order Number: [id number] MD: Mark Reed Measurements Intervals [place] Rate: 81 P: 43 AK: 157 QRS: 41 QRSD: 95 T: 46 QT: 493 QTc: 573 Interpretive Statements Sinus rhythm Borderline repolarization abnormality Prolonged QT interval No previous ECG available for comparison Electronically Signed On 01-06-2022 7:53:32 MANUAL TRAINING TEACHER by Mark Reed [email or web address] <ELECTRONICALLY SIGNED> By: Mark Reed MD, [facility] 01/06/22 [id number] Mark Reed MD, FACC /EPI
--- NOTE | 2022-01-06 08:03 | NUR ---
PT LYING IN BED. DENIES PAIN. INCONTINENT. RESTLESS. FREQUENT OBSERVATION.
[2022-01-06 11:32] LABS: CALCIUM 9.1 mg/dL (8.5-10.1); CREATININE 0.5 mg/dL (0.7-1.3); MAGNESIUM 1.5 mg/dL (1.8-2.4)
[2022-01-06 11:44] LABS: POTASSIUM 2.4 mmol/L (3.5-5.1)
--- NOTE | 2022-01-06 14:13 | NUR ---
Clinical update faxed and called to gp home caregiver Martina. She indicates they can not do IV atb there. [facility] is currently provide RN and OT services to the pt at the gp home. They can accept at dc but will need new orders faxed. [facility] is following up with the care team and pt regarding options should he need iv atb at dc.
[2022-01-06 14:18] VITALS: BP 130/75
--- NOTE | 2022-01-06 14:44 | NUR ---
Patient admits with low 02 sats and UTI. patient with recent admission at [facility]. Patient resides in [facility]. He is paraplegic, hx of schizophrenia, copd, asthma. patient transfer via [facility] to . He needs assist with all adls but can feed himself. He is A/Ox4. Patient uses [facility] HH care at tx. Patient does not have a legal guardian, DPOA. He makes his decisions. Martina staff member at [facility] [phone] is call or contact centre operator. Martina reports they are trying to get a hospital bed for patient. Patient uses oxygen at facility via [facility]. Sp with patient and Crystal at [facility]. Sp with [facility] HH care. Faxed clinical to [facility] and [facility]. Martina reports they cannot do IV antibiotics at facility. Updated phys.
[2022-01-06 15:33] VITALS: BP 151/91
--- NOTE | 2022-01-06 20:32 | NUR ---
PATIENT IS ALERT AND ORIENTED TO PERSON. NO PAIN, REPLACE POTASSIUM, HAD A BM, HAD A BEDBATH, CALL LIGHT WITHIN REACH.
[2022-01-06 22:30] VITALS: BP 146/91
[2022-01-07 07:42] VITALS: BP 146/91
--- NOTE | 2022-01-07 08:02 | NUR ---
RECEIVED CARE OF THIS PATIENT AT 1900. PATIENT ALERT AND ORIENTED XSELF. VERY CONFUSED. HAS VISUAL AND AUDITORY HALLUCINATIONS. KNOWS HE IS IN THE HOSPITAL AT TIMES BUT MOST OF THE TIME HE IS ELSE WHERE. LOWER EXT 3-4+ PITTING EDEMA. REMAINS ON BEDREST D/T BEING A PARAPLEGIC. WEARS O2 IN THE DAY AND CPAP AT HS. DENIES PAIN. SLEPT LITTLE THIS SHIFT.
--- NOTE | 2022-01-07 15:42 | NUR ---
Spoke with patient appears more alert. Spoke with Dr Snider he reports 2 weeks of IV antibiotics need. THis cannot be done at [facility] home. patient deferrd to Martina for decision. Martina reports he has been at [facility] in past and terribel experience. She is agreeable to referral to [facility]. Discussed patient with need of DPOA and possible his step mother willing. Martina reports she lives in [place]. She is aware he is here at hospital. Plan for casemgt to f/u with step mother. Referral to [facility].
[2022-01-07 16:29] VITALS: BP 175/99
--- NOTE | 2022-01-07 17:51 | NUR ---
Patient is alert and oriented to person, he does know that he is in the hospital. Patient is hallucinating seeing thing and talking to people. Patient report of spasm, seen more sweaty, and tremor on both hand today. Notified Hospitalist. Assist patient with meals. hourly rounding.
[2022-01-07 19:58] VITALS: BP 167/80
--- NOTE | 2022-01-08 04:51 | NUR ---
Pt. was restless at the first of the shift by yelling out and cursing out- loud. Scheduled meds given which were helpful. Pt. resting quietly during the night. He does not leave his c-pap on, so pt. is on O2 via nasal canula. Incontinent of stool and jag care was given. Bed alarm is on.
[2022-01-08 08:18] VITALS: BP 135/93
--- NOTE | 2022-01-08 09:59 | NUR ---
ASSUMED CARE OF PT AT 0700 THIS MORNING. PT IS DROWSY BUT ALERT AND ORIENTED TO SELF AND SITUATION. PT IS PARA LE. ASSESSMENTS ARE NOTED IN CHART AND OTHERWISE UNREMARKABLE. CALL LIGHT AND OTHER NEEDS ARE IN PLACE. FALL PRECAUTIONS ARE IN PLACE. MEDS AND TX GIVEN NEEDED AND SCHEDULED. PT IS REFUSING TO BE TURNED AT TIMES. WILL MONITOR AND NOTE ANY CHANGES.
--- NOTE | 2022-01-08 13:34 | NUR ---
[facility] is cont in evaluation process. Need to have medication list from [facility]. Martina at [facility] reports patient takes IV "haldol" every 4 weeks. she reported to [facility]. Sp with Martina requested medication list from facility be faxed. Geeta [phone] is patients step mother. Sp with her and updated her she lives in [place]. She believes patient has completed Advance directive in the past. She reports advance directive completed once when he was very ill. Patient has been at other hospital in past. She reports she is unsure location of advance directive. she reports she was primary and [facility] as secondary. Will request Martina determine location. She is agreeable for patient to dc to [facility] if accepting. Chris liason with [facility] doing on site eval.
[2022-01-08 16:53] VITALS: BP 142/93
--- NOTE | 2022-01-08 16:57 | NUR ---
Rec [facility] home medication list faxed to [facility], placed on chart and notified RN. [facility] reports they cannot accept due to PRN Haldol and injection Haldol which is due this month. Plan to discuss with phys.
[2022-01-08 19:26] VITALS: BP 120/71
[2022-01-09 02:43] LABS: ABSOLUTE NEUTROPHILS 6.3 thou/uL (1.4-8.2); BASOPHILS 0.3 % (0.0-2.0); EOSINOPHILS 0.8 % (0.0-3.0); HEMATOCRIT 37.1 % (42.0-52.0); HEMOGLOBIN 12.2 gm/dL (14.0-18.0); LYMPHOCYTES 17.5 % (24.0-44.0); MCH 29.3 pg (26.0-34.0); MCV 88.6 fL (80.0-100.0); MONOCYTES 6.7 % (1.0-8.0); PLATELET COUNT 221 thou/uL (150-400); POLYS 74.7 % (36.0-66.0); RBC 4.18 mil/uL (4.50-6.00); RDW 16.4 % (10.5-14.5); WBC 8.4 thou/uL (4.0-11.0)
--- NOTE | 2022-01-09 03:57 | NUR ---
ASSUMED PT CARE THSI PM. PT IS ALERT AND ORIENTED X3. PT IS HAS WEAKNESS TO THE LUE. PT IS ON 5L OF O2 VIA NC. PT HAS EDEMA TO BLE. MEDS WERE GIVEN PER [facility] ORDERS. JUSTICE IN PLACE. PT DID NOT VERBALIZE ANY COCNERNS AND NO VISIBLE SIGN OF DISTRESS WAS NOTED. FALL PRECAUTIONS IN PLACE. WILL CONTINUE TO MONITOR.
[2022-01-09 04:04] LABS: ALBUMIN 2.9 g/dL (3.4-5.0); CALCIUM 8.2 mg/dL (8.5-10.1); CREATININE 0.3 mg/dL (0.7-1.3); POTASSIUM 3.7 mmol/L (3.5-5.1); TOTAL BILIRUBIN 0.2 mg/dL (0.2-1.0); TOTAL PROTEIN 5.8 g/dL (6.4-8.2)
[2022-01-09 05:37] VITALS: BP 134/91
[2022-01-09 08:13] VITALS: BP 129/87
--- NOTE | 2022-01-09 12:41 | NUR ---
ASSUMED CARE OF PATIENT THIS MORNING. NO COMPLAINTS OF PAIN, VOIDING AND WANTING TO EAT BREAKFAST. DIET ADVANCED THIS AM AND TOLERATING PO INTAKE. UP ADLIB AND ON ROOM AIR. WILL CONTINUE TO MONITOR UROLOGY CALLED AND STATED THEY ARE READY TO CLEAR HIM FOR DISCHARGE. WILL RELAY TO HOSPITALIST.
--- NOTE | 2022-01-09 15:55 | NUR ---
[facility] accepting of patient for IV antibiotics. Updated Crystal with planned dc in am. she will bring patients wc to facility.
[2022-01-09 16:50] VITALS: BP 143/97
[2022-01-09 21:10] VITALS: BP 143/95
[2022-01-10 03:45] LABS: CALCIUM 8.7 mg/dL (8.5-10.1); CREATININE 0.4 mg/dL (0.7-1.3); MAGNESIUM 1.8 mg/dL (1.8-2.4); POTASSIUM 3.9 mmol/L (3.5-5.1)
--- NOTE | 2022-01-10 04:55 | NUR ---
ASSUMED PT CARE THIS PM. PT IS ALERT AND ORIENTED X3. PT IS ON 2L OF O2 VIA NC.PT USES CPAP AT [facility]. PT HAS EDEMA TO BLE. MEDS WERE GIVEN PER [facility] ORDERS. FALL PRECAUTIONS IN PLACE. WILL CONTINUE TO MONITOR.
[2022-01-10 08:38] VITALS: BP 130/91
[2022-01-10] MEDS ORDERED: ENOXAPARIN40 MG/0.4 SUBQ (10:46)
[2022-01-10] MEDS ORDERED: ALBUTEROL2.5 MG/0.5 INH (10:46)
[2022-01-10] MEDS ORDERED: DIVALPROEX SOD500 M1 PO (10:46)
[2022-01-10] MEDS ORDERED: ACETAMINOPHEN325 M1 PO (10:46)
[2022-01-10] MEDS ORDERED: ZOSYN 3.373.375 GM/1 IV (10:46)
[2022-01-10] MEDS ORDERED: CLONAZEPAM 0.50.5 M1 PO (10:46)
[2022-01-10 11:21] VITALS: BP 132/91
--- NOTE | 2022-01-10 14:32 | NUR ---
Patient got pick to go to [facility] on 1350, gave report to nurse Rocio at 1340. patient going with his right forearm 22 gauze for antibiotic.
--- NOTE | 2022-01-10 16:41 | NUR ---
Patient accepted to [facility]. Stretcher arranged for [phone]. Chart copied. Faxed orders. Updated Crystal at [facility] and Stepmother of dc and timeframe. Faxed Crystal orders.
== END 2022-01-10 14:00 | DRG 871 ==
LOC: ER 16:12 → EROBS 19:43 → 4S 19:43
PROVIDERS: Emergency Medicine; Nurse Practitioner; Specialist; ADMIT Internal Medicine; ATTEND Internal Medicine
PROC: 5A09357 Assistance with Respiratory Ventilation, Less than 24 Consecutive Hours, Continuous Positive Airway Pressure (ICD-10-PCS; principal; 2022-01-04)
PROC: 5A09357 Assistance with Respiratory Ventilation, Less than 24 Consecutive Hours, Continuous Positive Airway Pressure (ICD-10-PCS; 2022-01-05)
PROC: 5A09357 Assistance with Respiratory Ventilation, Less than 24 Consecutive Hours, Continuous Positive Airway Pressure (ICD-10-PCS; 2022-01-07)
PROC: 5A09357 Assistance with Respiratory Ventilation, Less than 24 Consecutive Hours, Continuous Positive Airway Pressure (ICD-10-PCS; 2022-01-08)
PROC: 5A09357 Assistance with Respiratory Ventilation, Less than 24 Consecutive Hours, Continuous Positive Airway Pressure (ICD-10-PCS; 2022-01-09)
DX: A41.9 Sepsis, unspecified organism (principal); J96.21 Acute and chronic respiratory failure with hypoxia; E43 Unspecified severe protein-calorie malnutrition; G92.8 Other toxic encephalopathy; J18.9 Pneumonia, unspecified organism; T83.511A Infection and inflammatory reaction due to indwelling urethral catheter, initial encounter; J44.1 Chronic obstructive pulmonary disease with (acute) exacerbation; N39.0 Urinary tract infection, site not specified; G82.20 Paraplegia, unspecified; E87.6 Hypokalemia; E11.9 Type 2 diabetes mellitus without complications; F20.9 Schizophrenia, unspecified; E66.01 Morbid (severe) obesity due to excess calories; R62.50 Unspecified lack of expected normal physiological development in childhood; B96.5 Pseudomonas (aeruginosa) (mallei) (pseudomallei) as the cause of diseases classified elsewhere; Y83.8 Other surgical procedures as the cause of abnormal reaction of the patient, or of later complication, without mention of misadventure at the time of the procedure; F79 Unspecified intellectual disabilities; Z20.822 Contact with and (suspected) exposure to COVID-19; G47.33 Obstructive sleep apnea (adult) (pediatric); E83.42 Hypomagnesemia; I10 Essential (primary) hypertension; E78.5 Hyperlipidemia, unspecified; F17.210 Nicotine dependence, cigarettes, uncomplicated; Z68.39 Body mass index [BMI] 39.0-39.9, adult; Z71.6 Tobacco abuse counseling; Z99.3 Dependence on wheelchair; Y92.89 Other specified places as the place of occurrence of the external cause; Z79.82 Long term (current) use of aspirin; Z79.899 Other long term (current) drug therapy
CPT/HCPCS: 10100